=== PATIENT | male | born 1985 | race African-American/Black ===

== ENCOUNTER 2017-04-18 15:33 | Inpatient (IN) | payer MEDICARE ==
[~2017-04-18] VITALS: Ht 182.9 cm; Wt 195.5 kg
[~2017-04-18 15:33] MED LIST: AMOXICILLIN 25250 MG PO; ARAVA 20MG TABL20 MG PO; ATELVIA35 MG; BIAXIN 250MG T250 M1 PO; BUMEX 1MG TA1 MG/TA1 PO; BYSTOLIC10 MG PO; CARDIAC MED; CITRACAL PLUS1 TAB; COREG 6.256.25 MG/TA PO; FLOVENT 220MCG7.9 GM; FOLIC ACID 11 MG/TA1 PO; LEVAQUIN 750MG750 M1 PO; MORPHINE 1515 MG/TAB; MULTI VITAMINS1 TAB; NEPHROCAP PO; NORCO 325 MG-51 TAB PO; PHOS LO PO; PRAVACHOL 20MG20 MG PO; PREVACID 15MG15 M1 PO; PRINIVIL2.5 MG; PROTONIX 40MG T40 MG; RT ADVAIR HFA 2312 G IH; RT SPIRIVA18 MCG IH; TYLENOL 500MG500 MG PO; ULTRAM 50MG TAB50 MG; VANCOCIN HCL1 GM IV; VENTOLIN0.09 MG; VIRT PO; VIRT-CAPS; VITAMIN B-1000 MCG/T PO; VITAMIN C500 MG PO; VITAMIN D 1001000 IU; VITAMINC500CH PO; ZESTRIL 20MG TA20 MG PO; ZOFRAN ODT4 MG PO
[2017-04-18 16:19] LABS: BASO # 0.1 (0.0-0.2); BASO % 0.4 % (0.0-2.0); EOS # 0.3 (0.0-0.7); EOS % 2.5 % (0-4.0); GRAN # 9.1 (1.4-6.5); GRAN % 69.9 % (42.2-75.2); HEMATOCRIT 41.9 % (42.0-52.0); HEMOGLOBIN 13.8 g/dl (13.5-18.0); LYMPH # 2.2 (1.2-3.4); LYMPH % 17.2 % (20.0-51.0); MEAN CELL VOLUME 92 fl (80.0-100.0); MEAN CORPUSCULAR HEMOGLOBIN 30 pg (27.0-31.0); MEAN CORPUSCULAR HGB CONC 33 g/dl (33.0-37.0); MEAN PLATELET VOLUME 8.7 fl (7.4-10.4); MONO # 1.3 (0.1-0.6); MONO % 9.7 % (1.7-9.3); PLATELET COUNT 240 K/mm3 (130-400); RED BLOOD COUNT 4.57 M/mm3 (4.20-5.60); REDCELL DISTRIBUTION WIDTH-CV 14.7 % (11.5-14.5)
[2017-04-18 16:35] LABS: ADJUSTED CALCIUM 9.9 mg/dL (8.4-10.2); ALANINE AMINOTRANSFERASE 18 U/L (21-72); ALBUMIN 4.4 gm/dL (3.5-5.0); ALKALINE PHOSPHATASE 247 U/L (50-136); ANION GAP 18 mmol/L (7-16); BILIRUBIN,TOTAL 0.6 mg/dL (0.0-1.0); BLOOD UREA NITROGEN 82 mg/dL (9-20); CALCIUM 10.2 mg/dL (8.4-10.2); CARBON DIOXIDE 20 mmol/L (22-30); CHLORIDE 100 mmol/L (98-107); GLUCOSE 93 mg/dL (74-106); MAGNESIUM 2.6 mg/dL (1.6-2.3); PHOSPHOROUS 5.2 mg/dL (2.5-4.5); POTASSIUM 5.6 mmol/L (3.4-5.0); SODIUM 137 mmol/L (137-145)
[2017-04-18 16:43] LABS: CREATININE, serum 16.25 mg/dL (0.66-1.25)
[2017-04-18 16:46] LABS: B-TYPE NATRIURETIC PEPTIDE 197 pg/mL (0-125)
[2017-04-18 16:47] LABS: TROPONIN-I < 0.012 ng/mL (0.000-0.034)
[2017-04-18 22:13] VITALS: BP 128/85; PULSE 93; TEMP 98.3
[2017-04-19 04:10] VITALS: BP 132/81; PULSE 93; TEMP 98.6
[2017-04-19 11:20] VITALS: BP 127/68; PULSE 102; TEMP 98.1
== END 2017-04-19 12:33 | disposition home or self-care (01) | DRG 304 ==
LOC: COL.ER 15:33 → MEDICAL 17:06
PROVIDERS: Emergency Medicine
PROC: 5A1D60Z (ICD-10-PCS; principal; 2017-04-18)
DX: I16.0 Hypertensive urgency (principal); N18.6 End stage renal disease; I12.0 Hypertensive chronic kidney disease with stage 5 chronic kidney disease or end stage renal disease; E87.5 Hyperkalemia; E87.70 Fluid overload, unspecified; E83.39 Other disorders of phosphorus metabolism; Z87.891 Personal history of nicotine dependence; Z99.2 Dependence on renal dialysis
CPT/HCPCS: J1644

== ENCOUNTER 2017-05-13 07:08 | Emergency (ER) | payer MEDICARE ==
[~2017-05-13] VITALS: Ht 182.9 cm; Wt 189.5 kg
[2017-05-13 07:16] VITALS: TEMP 97.7
[2017-05-13 08:03] LABS: BASO % 0.3 % (0.0-2.0); EOS # 0.2 (0.0-0.7); EOS % 2.3 % (0-4.0); GRAN # 7.6 (1.4-6.5); GRAN % 72.9 % (42.2-75.2); HEMATOCRIT 43.3 % (42.0-52.0); HEMOGLOBIN 13.8 g/dl (13.5-18.0); LYMPH # 1.8 (1.2-3.4); LYMPH % 16.8 % (20.0-51.0); MEAN CELL VOLUME 93 fl (80.0-100.0); MEAN CORPUSCULAR HEMOGLOBIN 30 pg (27.0-31.0); MEAN CORPUSCULAR HGB CONC 32 g/dl (33.0-37.0); MEAN PLATELET VOLUME 8.7 fl (7.4-10.4); MONO # 0.8 (0.1-0.6); MONO % 7.3 % (1.7-9.3); PLATELET COUNT 200 K/mm3 (130-400); RED BLOOD COUNT 4.65 M/mm3 (4.20-5.60); REDCELL DISTRIBUTION WIDTH-CV 14.6 % (11.5-14.5); WHITE BLOOD COUNT 10.4 K/mm3 (4.8-10.8)
[2017-05-13 08:14] LABS: ADJUSTED CALCIUM 9.9 mg/dL (8.4-10.2); ALANINE AMINOTRANSFERASE 23 U/L (21-72); ALBUMIN 4.2 gm/dL (3.5-5.0); ALKALINE PHOSPHATASE 235 U/L (50-136); ANION GAP 16 mmol/L (7-16); BILIRUBIN,TOTAL 0.6 mg/dL (0.0-1.0); BLOOD UREA NITROGEN 42 mg/dL (9-20); CALCIUM 10.1 mg/dL (8.4-10.2); CARBON DIOXIDE 24 mmol/L (22-30); CHLORIDE 99 mmol/L (98-107); GLUCOSE 99 mg/dL (74-106); POTASSIUM 4.4 mmol/L (3.4-5.0); SODIUM 138 mmol/L (137-145); TOTAL PROTEIN 7.6 gm/dL (6.4-8.2)
[2017-05-13 08:18] LABS: CREATININE, serum 11.66 mg/dL (0.66-1.25)
[2017-05-13 08:25] LABS: B-TYPE NATRIURETIC PEPTIDE 332 pg/mL (0-125)
[2017-05-13 08:26] LABS: TROPONIN-I < 0.012 ng/mL (0.000-0.034)
[2017-05-13 10:50] VITALS: BP 102/84; PULSE 80
== END 2017-05-13 10:24 | disposition home or self-care (01) ==
LOC: COL.ER 07:08
PROVIDERS: Nurse Practitioner
DX: I13.2 Hypertensive heart and chronic kidney disease with heart failure and with stage 5 chronic kidney disease, or end stage renal disease (principal); N18.6 End stage renal disease; I50.9 Heart failure, unspecified; E87.70 Fluid overload, unspecified; E66.9 Obesity, unspecified; Z68.43 Body mass index [BMI] 50.0-59.9, adult; Z99.2 Dependence on renal dialysis; Z87.891 Personal history of nicotine dependence; Z90.49 Acquired absence of other specified parts of digestive tract

== ENCOUNTER 2017-06-23 10:06 | Inpatient (IN) | payer MEDICARE ==
[~2017-06-23] VITALS: Ht 182.9 cm; Wt 193.0 kg
[2017-06-23 12:40] LABS: BASO % 0.4 % (0.0-2.0); EOS # 0.3 (0.0-0.7); EOS % 2.4 % (0-4.0); GRAN # 7.2 (1.4-6.5); GRAN % 68.2 % (42.2-75.2); HEMATOCRIT 46.2 % (42.0-52.0); HEMOGLOBIN 14.9 g/dl (13.5-18.0); LYMPH # 2.3 (1.2-3.4); LYMPH % 22.2 % (20.0-51.0); MEAN CELL VOLUME 93 fl (80.0-100.0); MEAN CORPUSCULAR HEMOGLOBIN 30 pg (27.0-31.0); MEAN CORPUSCULAR HGB CONC 32 g/dl (33.0-37.0); MEAN PLATELET VOLUME 8.9 fl (7.4-10.4); MONO # 0.7 (0.1-0.6); MONO % 6.4 % (1.7-9.3); PLATELET COUNT 220 K/mm3 (130-400); RED BLOOD COUNT 4.97 M/mm3 (4.20-5.60); REDCELL DISTRIBUTION WIDTH-CV 14.8 % (11.5-14.5); WHITE BLOOD COUNT 10.5 K/mm3 (4.8-10.8)
[2017-06-23 12:48] LABS: PROTHROMBIN TIME 10.7 SECONDS (9.7-12.8)
[2017-06-23 12:49] LABS: ADJUSTED CALCIUM 9.7 mg/dL (8.4-10.2); ALANINE AMINOTRANSFERASE 19 U/L (21-72); ALBUMIN 4.5 gm/dL (3.5-5.0); ALKALINE PHOSPHATASE 270 U/L (50-136); ANION GAP 18 mmol/L (7-16); BILIRUBIN,TOTAL 0.7 mg/dL (0.0-1.0); BLOOD UREA NITROGEN 82 mg/dL (9-20); CALCIUM 10.1 mg/dL (8.4-10.2); CARBON DIOXIDE 20 mmol/L (22-30); CHLORIDE 101 mmol/L (98-107); CREATINE KINASE 163 U/L (55-170); GLUCOSE 77 mg/dL (74-106); LIPASE 343 U/L (23-300); MAGNESIUM 2.5 mg/dL (1.6-2.3); SODIUM 139 mmol/L (137-145); TOTAL PROTEIN 7.9 gm/dL (6.4-8.2)
[2017-06-23 12:58] LABS: CREATININE, serum 20.51 mg/dL (0.66-1.25); POTASSIUM 6.9 mmol/L (3.4-5.0)
[2017-06-23 13:01] LABS: B-TYPE NATRIURETIC PEPTIDE 784 pg/mL (0-125)
[2017-06-23 13:04] LABS: TROPONIN-I < 0.012 ng/mL (0.000-0.034)
[2017-06-23 18:42] VITALS: BP 138/77; PULSE 72; TEMP 97.6
[2017-06-23 19:37] VITALS: BP 129/71; PULSE 74; TEMP 97.5
[2017-06-24] VITALS: BP 137/79; PULSE 87; TEMP 98.2
[2017-06-24 02:26] VITALS: BP 134/76; PULSE 96; TEMP 97.9
[2017-06-24 03:39] VITALS: BP 130/74; PULSE 87; TEMP 98
[2017-06-24 07:16] VITALS: BP 134/81; PULSE 73; TEMP 98
[2017-06-24 08:46] LABS: BASO % 0.3 % (0.0-2.0); EOS # 0.2 (0.0-0.7); EOS % 2.2 % (0-4.0); GRAN # 6.2 (1.4-6.5); HEMATOCRIT 41.3 % (42.0-52.0); HEMOGLOBIN 13.2 g/dl (13.5-18.0); LYMPH % 22.3 % (20.0-51.0); MEAN CELL VOLUME 93 fl (80.0-100.0); MEAN CORPUSCULAR HEMOGLOBIN 30 pg (27.0-31.0); MEAN CORPUSCULAR HGB CONC 32 g/dl (33.0-37.0); MEAN PLATELET VOLUME 9.2 fl (7.4-10.4); MONO # 0.6 (0.1-0.6); MONO % 6.9 % (1.7-9.3); PLATELET COUNT 175 K/mm3 (130-400); RED BLOOD COUNT 4.43 M/mm3 (4.20-5.60); WHITE BLOOD COUNT 9.1 K/mm3 (4.8-10.8)
[2017-06-24 08:52] LABS: ANION GAP 16 mmol/L (7-16); BLOOD UREA NITROGEN 66 mg/dL (9-20); CALCIUM 9.6 mg/dL (8.4-10.2); CARBON DIOXIDE 22 mmol/L (22-30); CHLORIDE 103 mmol/L (98-107); GLUCOSE 104 mg/dL (74-106); POTASSIUM 4.9 mmol/L (3.4-5.0); SODIUM 141 mmol/L (137-145)
[2017-06-24 09:03] LABS: CREATININE, serum 16.68 mg/dL (0.66-1.25)
[2017-06-24 09:04] LABS: TROPONIN-I < 0.012 ng/mL (0.000-0.034)
[2017-06-24 10:24] VITALS: BP 153/91; PULSE 72; TEMP 98
[2017-06-24 11:08] VITALS: BP 158/100; PULSE 74; TEMP 97.3
== END 2017-06-24 11:54 | disposition home or self-care (01) | DRG 640 ==
LOC: COL.ER 10:06 → MEDICAL 13:54
PROVIDERS: Emergency Medicine; Internal Medicine
PROC: 5A1D00Z (ICD-10-PCS; principal; 2017-06-23)
DX: E87.5 Hyperkalemia (principal); N18.6 End stage renal disease; I12.0 Hypertensive chronic kidney disease with stage 5 chronic kidney disease or end stage renal disease; I16.0 Hypertensive urgency; E87.70 Fluid overload, unspecified; R07.89 Other chest pain; E83.39 Other disorders of phosphorus metabolism; E66.9 Obesity, unspecified; Z99.2 Dependence on renal dialysis; Z87.891 Personal history of nicotine dependence
CPT/HCPCS: J1815; J2405

== ENCOUNTER 2017-11-18 23:04 | Inpatient (IN) | payer MEDICARE, BC ==
[~2017-11-18] VITALS: Ht 182.9 cm; Wt 168.0 kg
[2017-11-18 23:51] LABS: BASO # 0.1 (0.0-0.2); BASO % 0.5 % (0.0-2.0); EOS # 0.2 (0.0-0.7); GRAN # 7.9 (1.4-6.5); GRAN % 75.5 % (42.2-75.2); HEMATOCRIT 32.1 % (42.0-52.0); HEMOGLOBIN 10.4 g/dl (13.5-18.0); LYMPH # 1.5 (1.2-3.4); LYMPH % 14.6 % (20.0-51.0); MEAN CELL VOLUME 90 fl (80.0-100.0); MEAN CORPUSCULAR HEMOGLOBIN 29 pg (27.0-31.0); MEAN CORPUSCULAR HGB CONC 32 g/dl (33.0-37.0); MEAN PLATELET VOLUME 9.3 fl (7.4-10.4); MONO # 0.7 (0.1-0.6); PLATELET COUNT 191 K/mm3 (130-400); RED BLOOD COUNT 3.56 M/mm3 (4.20-5.60); REDCELL DISTRIBUTION WIDTH-CV 13.2 % (11.5-14.5)
[2017-11-18 23:55] LABS: INR 1.1 (0.8-3.0); PROTHROMBIN TIME 12.6 SECONDS (9.7-12.8)
[2017-11-19] VITALS (7 sets, daily range): BP systolic 144–188; BP diastolic 79–124; PULSE 79–101; TEMP 97.9–98.8
[2017-11-19 00:01] LABS: ALBUMIN 4.4 gm/dL (3.5-5.0); BILIRUBIN,TOTAL 0.6 mg/dL (0.0-1.0); POTASSIUM 4.4 mmol/L (3.4-5.0); TOTAL PROTEIN 7.3 gm/dL (6.4-8.2)
[2017-11-19 00:07] LABS: CREATININE, serum 18.88 mg/dL (0.66-1.25)
[2017-11-19 00:13] LABS: TROPONIN-I 0.058 ng/mL (0.000-0.034)
[2017-11-20] VITALS (10 sets, daily range): BP systolic 141–203; BP diastolic 82–113; PULSE 88–113; TEMP 97.5–98.8
[2017-11-20 07:55] LABS: ALBUMIN 4.2 gm/dL (3.5-5.0); CALCIUM 9.4 mg/dL (8.4-10.2); PHOSPHOROUS 5.8 mg/dL (2.5-4.5); POTASSIUM 4.3 mmol/L (3.4-5.0)
[2017-11-20 08:03] LABS: CREATININE, serum 15.54 mg/dL (0.66-1.25)
[2017-11-21 01:04] VITALS: BP 165/108; PULSE 103; TEMP 98.6
[2017-11-21 05:52] VITALS: BP 187/130; PULSE 89; TEMP 98.3
[2017-11-21 07:42] VITALS: BP 182/126; PULSE 105; TEMP 98.1
[2017-11-21] MEDS ORDERED: NORVASC 5MG5 MG/TAB PO (11:11)
[2017-11-21] MEDS ORDERED: AMOXICILLIN 8751 TAB PO (11:11)
[2017-11-21] MEDS ORDERED: ROCALTROL0.5 MCG PO (11:12)
== END 2017-11-21 12:37 | disposition home or self-care (01) | DRG 280 ==
LOC: COL.ER 23:04 → MEDICAL 11-19 00:26
PROVIDERS: Emergency Medicine; Internal Medicine Nephrology
DX: I13.2 Hypertensive heart and chronic kidney disease with heart failure and with stage 5 chronic kidney disease, or end stage renal disease (principal); I50.23 Acute on chronic systolic (congestive) heart failure; I21.A1 Myocardial infarction type 2; N18.6 End stage renal disease; I16.0 Hypertensive urgency; J01.00 Acute maxillary sinusitis, unspecified; Z99.2 Dependence on renal dialysis; Z87.891 Personal history of nicotine dependence; Z91.15 Patient's noncompliance with renal dialysis
CPT/HCPCS: A9502; J0604; J1940; J2270; J2405; J2765; J2785

== ENCOUNTER → 2020-01-26 | Outpatient (CLI) | payer MEDICARE, BC ==
[~2020-01-26] MED LIST changes: +AMOXICILLIN 8751 TAB PO; +COLACE 100100 MG/CAP PO; +DILAUDID 2MG TAB2 MG PO; +DULCOLAX TAB5 MG PO; +NORVASC 5MG5 MG/TAB PO; +ROCALTROL0.5 MCG PO
== END ==
LOC: ZCOL.LAB 10:19
DX: Z03.818 Encounter for observation for suspected exposure to other biological agents ruled out (principal)

== ENCOUNTER 2020-05-27 15:03 | Inpatient (IN) | payer MEDICARE, BC ==
[2020-05-27] VITALS (223 sets, daily range): BP systolic 145–159; BP diastolic 102–105; PULSE 103–109; TEMP 99–99.3; O2SAT 88–100
[~2020-05-27] VITALS: Ht 182.9 cm; Wt 129.4 kg
[2020-05-27 16:12] LABS: GRAN # 2.5 (1.4-6.5); GRAN % 70.5 % (42.2-75.2); HEMATOCRIT 39.6 % (42.0-52.0); HEMOGLOBIN 12.8 g/dl (13.5-18.0); LYMPH # 0.7 (1.2-3.4); LYMPH % 20.6 % (20.0-51.0); MEAN CELL VOLUME 91 fl (80.0-100.0); MEAN CORPUSCULAR HEMOGLOBIN 29 pg (27.0-31.0); MEAN CORPUSCULAR HGB CONC 32 g/dl (33.0-37.0); MEAN PLATELET VOLUME 10.1 fl (7.4-10.4); MONO # 0.3 (0.1-0.6); MONO % 8.6 % (1.7-9.3); PLATELET COUNT 97 K/mm3 (130-400); RED BLOOD COUNT 4.36 M/mm3 (4.20-5.60); REDCELL DISTRIBUTION WIDTH-CV 13.6 % (11.5-14.5)
[2020-05-27 16:21] LABS: ALBUMIN 3.8 gm/dL (3.5-5.0); BILIRUBIN,TOTAL 0.9 mg/dL (0.0-1.0); CALCIUM 9.2 mg/dL (8.4-10.2); CREATININE, serum 10.96 (0.66-1.25); POTASSIUM 3.4 mmol/L (3.4-5.0)
--- NOTE | 2020-05-27 19:30 | NUR ---
Patient resting in bed at this time talking on the phone. Assessment complete. See shift assessment for details. patient does get dyspneic with exertion, but is otherwise fine when resting. No complaints of pain. He is A+Ox4. Veyr pleasant man. No current needs at this time. Will continue to monitor. Call light within reach.
--- NOTE | 2020-05-27 20:45 | NUR ---
Dr. Aquino at the bedside at this time.
[2020-05-28] VITALS (954 sets, daily range): BP systolic 158–174; BP diastolic 73–127; PULSE 95–110; TEMP 98.2–100.4; O2SAT 35–100
[2020-05-28 13:15] LABS: BASO % 0.3 % (0.0-2.0); GRAN # 2.4 (1.4-6.5); GRAN % 79.5 % (42.2-75.2); HEMATOCRIT 37.7 % (42.0-52.0); LYMPH # 0.4 (1.2-3.4); LYMPH % 14.6 % (20.0-51.0); MEAN CELL VOLUME 92 fl (80.0-100.0); MEAN CORPUSCULAR HEMOGLOBIN 29 pg (27.0-31.0); MEAN CORPUSCULAR HGB CONC 32 g/dl (33.0-37.0); MEAN PLATELET VOLUME 11.5 fl (7.4-10.4); MONO # 0.2 (0.1-0.6); MONO % 5.3 % (1.7-9.3); PLATELET COUNT 97 K/mm3 (130-400); REDCELL DISTRIBUTION WIDTH-CV 13.8 % (11.5-14.5)
[2020-05-28 13:30] LABS: ALBUMIN 3.7 gm/dL (3.5-5.0); BILIRUBIN,TOTAL 0.8 mg/dL (0.0-1.0); CALCIUM 8.9 mg/dL (8.4-10.2); CREATININE, serum 12.4 (0.66-1.25); POTASSIUM 3.7 mmol/L (3.4-5.0); TOTAL PROTEIN 6.9 gm/dL (6.4-8.2)
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
--- NOTE | 2020-05-28 20:10 | NUR ---
PATIENT CHEERFUL COOPERATIVE, EXPLAINS ILLNESS, DIRECT EYE CONTACT, WARM SKIN, ORAL TEMP 98.5 AXILLARY TEMP 99.5, COMPLAINS OF TIGHTNESS IN CHEST WHEN COUGHING, RATES 4 /10. ADMINISTERING MED FOR PAIN AND WARM SKIN.
[2020-05-29] VITALS (781 sets, daily range): BP systolic 155–174; BP diastolic 109–119; PULSE 98–108; TEMP 98.1–98.8; O2SAT 39–100
[2020-05-29 05:32] LABS: HEMATOCRIT 38.6 % (42.0-52.0); HEMOGLOBIN 12.5 g/dl (13.5-18.0); MEAN CELL VOLUME 90 fl (80.0-100.0); MEAN CORPUSCULAR HEMOGLOBIN 29 pg (27.0-31.0); MEAN CORPUSCULAR HGB CONC 32 g/dl (33.0-37.0); PLATELET COUNT 122 K/mm3 (130-400); RED BLOOD COUNT 4.31 M/mm3 (4.20-5.60)
[2020-05-29 05:41] LABS: ALBUMIN 3.7 gm/dL (3.5-5.0); BILIRUBIN,TOTAL 0.7 mg/dL (0.0-1.0); CALCIUM 7.8 mg/dL (8.4-10.2); POTASSIUM 3.9 mmol/L (3.4-5.0); TOTAL PROTEIN 7.1 gm/dL (6.4-8.2)
[2020-05-29 05:46] LABS: CREATININE, serum 15.99 (0.66-1.25)
[2020-05-29 06:03] LABS: BAND 38 % (0-10); LYMPHOCYTE 7 % (20.0-51.0); METAMYELOCYTE 1 % (0-0); NEUTROPHILS 50 % (42.0-75.2); PLATELET ESTIMATE DECREASED (NORMAL)
--- NOTE | 2020-05-29 16:31 | NUR ---
Fingerprint Clerk contacted the patient on his cell phone to discuss setting up at PCP. The patient was agreeable at this time to look at a list of [facility] physicians. He states he has dialysis three days a week and he could attend appointments on those days since he will be in town. SW provided list of providers. Will continue to monitor.
--- NOTE | 2020-05-29 19:57 | NUR ---
PATIENT STATES DENIAL OF DISCOMFORT. WITH DIAYLSIS TODAY HE FEELS HE CAN BREATH BETTER, LESS OF A COUGH, CHEST TIGHTNESS NOW A 3/10 AND TOLERABLE
[2020-05-30] VITALS (743 sets, daily range): BP systolic 150–170; BP diastolic 100–113; PULSE 98–104; TEMP 97.8–99.1; O2SAT 46–100
[2020-05-30 05:50] LABS: HEMOGLOBIN 14.1 g/dl (13.5-18.0); MEAN CELL VOLUME 89 fl (80.0-100.0); MEAN CORPUSCULAR HEMOGLOBIN 29 pg (27.0-31.0); MEAN CORPUSCULAR HGB CONC 33 g/dl (33.0-37.0); MEAN PLATELET VOLUME 10.4 fl (7.4-10.4); PLATELET COUNT 186 K/mm3 (130-400); RED BLOOD COUNT 4.83 M/mm3 (4.20-5.60); REDCELL DISTRIBUTION WIDTH-CV 14.2 % (11.5-14.5)
[2020-05-30 05:57] LABS: ALBUMIN 4.1 gm/dL (3.5-5.0); BILIRUBIN,TOTAL 0.8 mg/dL (0.0-1.0); CALCIUM 7.7 mg/dL (8.4-10.2); CREATININE, serum 13.17 (0.66-1.25); POTASSIUM 3.9 mmol/L (3.4-5.0); TOTAL PROTEIN 7.7 gm/dL (6.4-8.2)
[2020-05-30 07:21] LABS: BAND 5 % (0-10); LYMPHOCYTE 14 % (20.0-51.0); METAMYELOCYTE 2 % (0-0); NEUTROPHILS 73 % (42.0-75.2); PLATELET ESTIMATE NORMAL (NORMAL)
--- NOTE | 2020-05-30 20:33 | NUR ---
Resting in bed. Assessment complete. Right lower lobe diminshed otherwise clear. Heart sounds tachy. Bowels active. Pulses present throughout. bilateral lower extremity edema +1. INT right AC flushed without complications. Left forearm fistula bruit and thrill present. Denies pain. BP elevated-scheduled hydralazine given. Denies needs at this time. Will monitor. Call light in reach.
--- NOTE | 2020-05-30 21:47 | NUR ---
BP continues to be elevated. Given PRN hydralazine at this time orally. Will recheck closer to midnight.
--- NOTE | 2020-05-30 21:48 | NUR ---
Per Juanita at dialysis, patient will be done at 0730
[2020-05-31] VITALS (659 sets, daily range): BP systolic 115–151; BP diastolic 88–109; PULSE 101–120; TEMP 97.8–98.6; O2SAT 74–100
--- NOTE | 2020-05-31 00:18 | NUR ---
Resting in bed. Denies needs. Denies pain .Call light in reach.
--- NOTE | 2020-05-31 06:48 | NUR ---
Patient placed on 2 liter for comfort/shortness of breath after using restroom by TATUM Doyle. Saturations low 90s. Now 97%. Respiratory notified. Otherwise uneventful night. Resting in bed this AM. Was giving hydralazine PRN as ordered for BP. Denied needs. Call light in reach.
--- NOTE | 2020-05-31 07:29 | NUR ---
Report given to TATUM Villanueva
[2020-05-31 09:35] LABS: HEMATOCRIT 39.8 % (42.0-52.0); HEMOGLOBIN 13.1 g/dl (13.5-18.0); MEAN CELL VOLUME 90 fl (80.0-100.0); MEAN CORPUSCULAR HEMOGLOBIN 30 pg (27.0-31.0); MEAN CORPUSCULAR HGB CONC 33 g/dl (33.0-37.0); MEAN PLATELET VOLUME 10.6 fl (7.4-10.4); PLATELET COUNT 178 K/mm3 (130-400); RED BLOOD COUNT 4.44 M/mm3 (4.20-5.60); REDCELL DISTRIBUTION WIDTH-CV 14.3 % (11.5-14.5)
[2020-05-31 09:53] LABS: ALBUMIN 3.7 gm/dL (3.5-5.0); BILIRUBIN,TOTAL 0.7 mg/dL (0.0-1.0); CALCIUM 8.3 mg/dL (8.4-10.2); POTASSIUM 3.7 mmol/L (3.4-5.0); TOTAL PROTEIN 6.8 gm/dL (6.4-8.2)
[2020-05-31 09:57] LABS: BAND 3 % (0-10); LYMPHOCYTE 26 % (20.0-51.0); NEUTROPHILS 68 % (42.0-75.2); PLATELET ESTIMATE NORMAL (NORMAL)
[2020-05-31 09:59] LABS: CREATININE, serum 16.77 (0.66-1.25)
--- NOTE | 2020-05-31 13:55 | NUR ---
It Risk And Assurance Senior Manager contacted the patient via room phone to disuss PCP options. The patient is still looking over the list provided. JESSICA offered to set up a physician for the patient. He declined and would like JESSICA to follow up with him tomorrow, 06/01 for his choice.
--- NOTE | 2020-05-31 20:46 | NUR ---
PATIENT DENIES DISCOMFORT AT THIS TIME, STATES "i'M READY TO GO HOME, HOPEFULLY SOON". B/P IS LOWER AT CURRENT TIME 124/88
[2020-06-01] VITALS (569 sets, daily range): BP systolic 96–134; BP diastolic 79–88; PULSE 101–109; TEMP 97.8–99.3; O2SAT 88–100
[2020-06-01 05:53] LABS: HEMATOCRIT 44.7 % (42.0-52.0); HEMOGLOBIN 14.3 g/dl (13.5-18.0); MEAN CELL VOLUME 90 fl (80.0-100.0); MEAN CORPUSCULAR HEMOGLOBIN 29 pg (27.0-31.0); MEAN CORPUSCULAR HGB CONC 32 g/dl (33.0-37.0); MEAN PLATELET VOLUME 10.6 fl (7.4-10.4); PLATELET COUNT 217 K/mm3 (130-400); RED BLOOD COUNT 4.99 M/mm3 (4.20-5.60); REDCELL DISTRIBUTION WIDTH-CV 14.2 % (11.5-14.5)
[2020-06-01 05:58] LABS: BILIRUBIN,TOTAL 0.7 mg/dL (0.0-1.0); CALCIUM 8.6 mg/dL (8.4-10.2); CREATININE, serum 13.4 (0.66-1.25); POTASSIUM 3.9 mmol/L (3.4-5.0); TOTAL PROTEIN 7.5 gm/dL (6.4-8.2)
[2020-06-01 06:10] LABS: BAND 2 % (0-10); LYMPHOCYTE 19 % (20.0-51.0); NEUTROPHILS 67 % (42.0-75.2); NUCLEATED RED BLOOD CELL 2 (0-6); PLATELET ESTIMATE NORMAL (NORMAL)
--- NOTE | 2020-06-01 15:15 | NUR ---
trailhead construction worker met with patient to follow up on choice of primary care provider. Patient chose [facility] in [place].
--- NOTE | 2020-06-01 18:22 | NUR ---
Patient arrived to room at this time. He is stable. Ambulated to the restroom from the wheel chair and did well via standby. All belongings were transferred with the patient. No current complaints or needs at this time. Patient is now comfortable in room. Call light is in reach. Patient denies other needs besides the want to take a shower. Patient is aware to not get up on his own.
--- NOTE | 2020-06-01 23:18 | NUR ---
Pt resting in bed, ASSOCIATE PROFESSOR OF COMMUNICATION assisted with shower and provided clean gown. pt reports productive cough and shortness of breath. heart sounds are regular with S1 and S2 present. no other needs at this time.
[2020-06-02 00:19] VITALS: BP 130/82; PULSE 92; TEMP 98.2
[2020-06-02 04:22] VITALS: BP 118/76; PULSE 103; TEMP 98
--- NOTE | 2020-06-02 05:22 | NUR ---
Patient has denied having pain and discomfort this shift. Voices no questions, needs, or concerns. Has been resting in bed with call light within reach.
[2020-06-02 06:22] LABS: ALBUMIN 4.1 gm/dL (3.5-5.0); BILIRUBIN,TOTAL 0.8 mg/dL (0.0-1.0); CALCIUM 8.9 mg/dL (8.4-10.2); POTASSIUM 3.8 mmol/L (3.4-5.0); TOTAL PROTEIN 7.2 gm/dL (6.4-8.2)
[2020-06-02 07:52] LABS: HEMATOCRIT 45.4 % (42.0-52.0); HEMOGLOBIN 14.9 g/dl (13.5-18.0); MEAN CELL VOLUME 88 fl (80.0-100.0); MEAN CORPUSCULAR HEMOGLOBIN 29 pg (27.0-31.0); MEAN CORPUSCULAR HGB CONC 33 g/dl (33.0-37.0); MEAN PLATELET VOLUME 10.7 fl (7.4-10.4); PLATELET COUNT 283 K/mm3 (130-400); RED BLOOD COUNT 5.17 M/mm3 (4.20-5.60); REDCELL DISTRIBUTION WIDTH-CV 13.9 % (11.5-14.5)
[2020-06-02 08:36] LABS: BAND 1 % (0-10); LYMPHOCYTE 25 % (20.0-51.0); NEUTROPHILS 64 % (42.0-75.2); PLATELET ESTIMATE NORMAL (NORMAL)
[2020-06-02 08:58] VITALS: BP 120/61; PULSE 111; TEMP 97.8
--- NOTE | 2020-06-02 10:35 | NUR ---
Assessment complete. Patient sitting up in bed, awake and alert at this time. Denies pain or discomfort. IV site is CD&I, flushed well. Fistula site, dressed, CD&I, no signs of bleeding or drainage. Only complaint was that his breakfast was cold. Will continue to monitor. Patient is aware that he needs to call before getting up. No other needs at thsi time. Call light is in reach.
[2020-06-02 13:05] VITALS: BP 135/85; PULSE 108; TEMP 98.1
--- NOTE | 2020-06-02 13:16 | NUR ---
Patient was up, ambulated to restroom at this time using walker via standby assist. Patient did very well. He felt SOB and a little dizzy when sittinjg up but this improved. Denies pain or discomfort at this time. Will continue to monitor. Call light is in reach.
--- NOTE | 2020-06-02 16:21 | NUR ---
JESSICA was notified from Jennifer LOPEZ, that [facility] in [place] is not taking a new patient's at this time. Antonette referred JESSICA to Dr. Chaparro Ortiz at [facility]. JESSICA then contacted [facility] and secured the patient a telephone appointment on , 06/08, at [address] Ortiz. JESSICA faxed the patient's records to [facility] (fax#[phone]). [place] requested the patient's d/c summary and orders when in. JESSICA notified the self contained behavior unit teacher of the appointment. JESSICA contacted and updated the patient and his mother of the appointment. They were agreeable to the appointment. No additional needs at this time.
--- NOTE | 2020-06-02 17:40 | NUR ---
Patient has had no complaints and minimal needs through shift. Continues to deny pain. Some SOB on exersion but O2 sat remains stable. Continuing to monitor. Call light is in reach.
[2020-06-02 17:47] VITALS: BP 127/63; PULSE 102; TEMP 97.7
[2020-06-02 20:00] VITALS: BP 130/84; PULSE 107; TEMP 97.9
--- NOTE | 2020-06-03 02:57 | NUR ---
Pt assessment completed. Pt has had no complaints this shift. Plan for patient to discharge next shift.
[2020-06-03 05:51] VITALS: BP 107/77; PULSE 104; TEMP 97.5
[2020-06-03 10:15] VITALS: BP 110/72; PULSE 99; TEMP 97.4
--- NOTE | 2020-06-03 10:19 | NUR ---
PATIENT ASSESSMENT COMPLETED. HE DENIES ANY PAIN OR SOB WHILE AT REST. HE DOES REPORTS SOME WITH ACTIVITY. ALSO STATES THAT COUGH IS ALOT BETTER NOW
[2020-06-03 12:54] VITALS: BP 110/70; PULSE 103; TEMP 98
--- NOTE | 2020-06-03 13:02 | NUR ---
PATIENT IS RESTING IN BED. I WAS ABLE TO DRAW BLOOD FROM THE RIGHT HAND WITH A 23 G BUTTERFLY NEEDLE. PATIENT TOLERATES WELL. REQUESTED WATER THIS WAS PROVIDED ALSO.
[2020-06-03 13:20] LABS: HEMATOCRIT 42.8 % (42.0-52.0); MEAN CELL VOLUME 89 fl (80.0-100.0); MEAN CORPUSCULAR HEMOGLOBIN 29 pg (27.0-31.0); MEAN CORPUSCULAR HGB CONC 33 g/dl (33.0-37.0); MEAN PLATELET VOLUME 10.3 fl (7.4-10.4); PLATELET COUNT 280 K/mm3 (130-400); REDCELL DISTRIBUTION WIDTH-CV 14.1 % (11.5-14.5)
[2020-06-03 13:29] LABS: ALBUMIN 3.9 gm/dL (3.5-5.0); BILIRUBIN,TOTAL 0.7 mg/dL (0.0-1.0); CALCIUM 8.3 mg/dL (8.4-10.2); POTASSIUM 3.5 mmol/L (3.4-5.0); TOTAL PROTEIN 7.2 gm/dL (6.4-8.2)
[2020-06-03 13:34] LABS: CREATININE, serum 14.19 (0.66-1.25)
[2020-06-03] MEDS ORDERED: PROTONIX 40MG T40 MG PO (13:56)
[2020-06-03] MEDS ORDERED: DECADRON6 MG PO (13:57)
[2020-06-03 15:18] LABS: LYMPHOCYTE 21 % (20.0-51.0); NEUTROPHILS 68 % (42.0-75.2)
[2020-06-03 15:21] LABS: HYPOCHROMIA 1+; PLATELET ESTIMATE NORMAL (NORMAL)
--- NOTE | 2020-06-03 16:45 | NUR ---
PATIENT DISCHARGED TO HOME VIA WHEELCHAIR WITH BELONGINGS. COVID PROTOCOL FOLLOWED FOR DISCHARGE. NO FURTHER QUESTIONS OR NEEDS EXPRESSED.
== END 2020-06-03 16:45 | disposition home or self-care (01) | DRG 177 ==
LOC: COL.ER 15:03 → ICU 16:21 → PEDS 06-01 18:09
PROVIDERS: Family Medicine; ADMIT Internal Medicine Nephrology
PROC: 5A1D70Z Performance of Urinary Filtration, Intermittent, Less than 6 Hours Per Day (ICD-10-PCS; principal; 2020-06-03)
DX: U07.1 COVID-19 (principal); J12.89 Other viral pneumonia; N18.6 End stage renal disease; Z68.42 Body mass index [BMI] 45.0-49.9, adult; I42.9 Cardiomyopathy, unspecified; I13.2 Hypertensive heart and chronic kidney disease with heart failure and with stage 5 chronic kidney disease, or end stage renal disease; D69.6 Thrombocytopenia, unspecified; E83.39 Other disorders of phosphorus metabolism; E66.01 Morbid (severe) obesity due to excess calories; I50.9 Heart failure, unspecified; Z90.89 Acquired absence of other organs; Z87.891 Personal history of nicotine dependence
CPT/HCPCS: J0692; J1650; J1956; J7030; J7120; J8540

== ENCOUNTER 2020-07-12 06:35 | Observation (INO) | payer MEDICARE, BC ==
[~2020-07-12] VITALS: Ht 182.9 cm; Wt 163.4 kg
[~2020-07-12 06:35] MED LIST changes: +DECADRON6 MG PO; +PROTONIX 40MG T40 MG PO
[2020-07-12 07:36] LABS: BASO % 0.4 % (0.0-2.0); EOS # 0.1 (0.0-0.7); EOS % 0.7 % (0-4.0); GRAN # 5.3 (1.4-6.5); GRAN % 69.6 % (42.2-75.2); HEMOGLOBIN 10.5 g/dl (13.5-18.0); LYMPH # 1.6 (1.2-3.4); LYMPH % 21.1 % (20.0-51.0); MEAN CELL VOLUME 91 fl (80.0-100.0); MEAN CORPUSCULAR HEMOGLOBIN 29 pg (27.0-31.0); MEAN CORPUSCULAR HGB CONC 32 g/dl (33.0-37.0); MEAN PLATELET VOLUME 9.5 fl (7.4-10.4); MONO # 0.6 (0.1-0.6); MONO % 7.5 % (1.7-9.3); PLATELET COUNT 201 K/mm3 (130-400); RED BLOOD COUNT 3.61 M/mm3 (4.20-5.60); REDCELL DISTRIBUTION WIDTH-CV 14.6 % (11.5-14.5)
[2020-07-12 07:50] LABS: ALBUMIN 3.9 gm/dL (3.5-5.0); BILIRUBIN,TOTAL 0.7 mg/dL (0.0-1.0); C-REACTIVE PROTEIN 1.2 mg/dL (0.0-0.9); CALCIUM 8.8 mg/dL (8.4-10.2); CREATININE, serum 9.78 (0.66-1.25); POTASSIUM 3.7 mmol/L (3.4-5.0); TOTAL PROTEIN 6.7 gm/dL (6.4-8.2)
[2020-07-12 08:05] LABS: TROPONIN-I 0.038 ng/mL (0.000-0.035)
--- NOTE | 2020-07-12 08:45 | NUR ---
Realtime Court Reporter was consulted for this patient due to needing information about affording medications. The patient has Medicare and [employer] as secondary. SW met with the patient. SW provided GoodRx Card for the patient. SW discussed applying for Medicaid. He has applied in the past but was denied. He would like to apply again. The patient was open to having Antionette Sifuentesruh with the [facility] finance assist. JESSICA consulted with Antionette. JESSICA collaborated the above information with the patient's nurse.
--- NOTE | 2020-07-12 15:13 | NUR ---
Glass Deposition Tender and RN Alysha EID met with the patient to present the [employer] forms. The patient understood and signed the form. A copy was provided to the patient and original was placed in the chart.
[2020-07-12 16:16] VITALS: BP 196/122; PULSE 89; TEMP 97.7
--- NOTE | 2020-07-12 19:41 | NUR ---
Pt up to room 315 after dialysis this afternoon. pt A&O, indpendent in room, on room air, breathing is even and unlabored. Pt denies SOA. Pt on tele, pulses strong bilaterally, HRRR. BS active. pt denies N/V/D since arriving to dialysis and floor. BLE 1+ noted. No skin issues noted. Lt arm restriction, LFA fistula in place, bruit and thrill present. RAC INT IV flushes w/o difficulty. Pt has had elevated BPs all day, states he feels fine. Hydralazine PRN administered and atenolol per mar. pt denies chest pain, dizziness, numbness or tingling. No further needs expressed.
[2020-07-12 19:57] VITALS: BP 108/108; BP 187/108; PULSE 82; TEMP 97.6
--- NOTE | 2020-07-12 20:00 | NUR ---
Resting in bed. Assessment complete. Lungs diminshed throughout. Heart sounds normal. Bowels active x4. Pulses present throughout. Bilateral lower extremity edema +1. Denies pain. Denies needs at this time. Call light in reach. BP medications given.
[2020-07-12 21:39] VITALS: BP 171/105
--- NOTE | 2020-07-12 22:09 | NUR ---
Patient given PRN hydralazine for BP
[2020-07-12 23:55] VITALS: BP 155/93; PULSE 80; TEMP 98.5
--- NOTE | 2020-07-13 00:02 | NUR ---
Resting in bed. Denies needs. Call light in reach.
--- NOTE | 2020-07-13 02:11 | NUR ---
Resting in bed asleep. Call light in reach.
[2020-07-13 03:58] VITALS: BP 153/96; PULSE 79; TEMP 98.5
--- NOTE | 2020-07-13 06:40 | NUR ---
Patient required zofran x2 doses throughout night for nausea. Otherwise uneventful night. Resting in bed this AM. Call light in reach.
--- NOTE | 2020-07-13 07:15 | NUR ---
Report given to TATUM Pack
[2020-07-13 08:03] VITALS: BP 169/99; PULSE 81; TEMP 98.7
--- NOTE | 2020-07-13 08:57 | NUR ---
Pt awake and alert this morning upon entry, talkative, no C/O pain at this time, shift assessments complete, no issues, left Pt call light in reach, bed in lowest position.
--- NOTE | 2020-07-13 11:09 | NUR ---
SW met with the patient to discuss discharge plan. The patient lives in [place] with his parents: Ngozi (ph#[phone]) and Vipin. He reports independence with ADLs and has a cane. The patient does not have a PCP at this time. SW discussed getting set up with a PCP or at a clinic. The patient states that he was set up with Dr. Gary in [place] his last hospital stay, but he still wants to look for a PCP on his own and not interested in SW getting him set up with one or SW making an appointment with Dr. Gary. The patient receives his medications at [facility]. Social Work was consulted when the patient was in ED and Financial Counseling was notified. Financial Counseling completed a Medicaid application with the patient. SW presented the Release of Information Forms to the patient. The patient signed the forms and SW emailed them back to Financial Counseling. The patient plans to discharge back home with his parents tomorrow, 07/14, after dialysis. No additional needs at this time.
[2020-07-13 11:11] VITALS: BP 159/99; PULSE 80; TEMP 98.6
[2020-07-13 16:00] VITALS: BP 159/90; PULSE 81; TEMP 98
--- NOTE | 2020-07-13 18:53 | NUR ---
Pt resting in the room today, Pt has had no C/O pain today, no other issues noted. VS have remained stable.
[2020-07-13 18:57] VITALS: BP 158/103; PULSE 83; TEMP 98.6
--- NOTE | 2020-07-13 21:45 | NUR ---
Resting in bed. Assessment complete. Lungs clear. Heart sounds normal. Bowels active x4. Pulses present throughout. Bilateral lower extremity edema +1. INT right AC flushed without complications. Denies pain. denies needs. Call light in reach.
[2020-07-13 23:04] VITALS: BP 158/88; PULSE 80; TEMP 98
--- NOTE | 2020-07-14 00:45 | NUR ---
Resting in bed. Denies needs. Call light in reach.
--- NOTE | 2020-07-14 02:00 | NUR ---
Resting in bed asleep. Call light in reach.
[2020-07-14 03:45] VITALS: BP 161/98; PULSE 80; TEMP 98.1
--- NOTE | 2020-07-14 05:03 | NUR ---
Patient required x1 dose of hydralazine for BP control throughout night. Otherwise uneventful night. Resting in bed this AM.
[2020-07-14 05:30] VITALS: BP 154/90; PULSE 81
--- NOTE | 2020-07-14 07:38 | NUR ---
Report given to TATUM Pack
[2020-07-14 07:47] LABS: BASO % 0.4 % (0.0-2.0); EOS # 0.1 (0.0-0.7); EOS % 1.6 % (0-4.0); GRAN # 5.6 (1.4-6.5); GRAN % 68.6 % (42.2-75.2); LYMPH # 1.7 (1.2-3.4); LYMPH % 20.5 % (20.0-51.0); MEAN CELL VOLUME 94 fl (80.0-100.0); MEAN CORPUSCULAR HEMOGLOBIN 30 pg (27.0-31.0); MEAN CORPUSCULAR HGB CONC 31 g/dl (33.0-37.0); MEAN PLATELET VOLUME 10.1 fl (7.4-10.4); MONO # 0.7 (0.1-0.6); MONO % 8.5 % (1.7-9.3); PLATELET COUNT 187 K/mm3 (130-400); RED BLOOD COUNT 3.39 M/mm3 (4.20-5.60)
[2020-07-14 07:54] LABS: HEMATOCRIT 31.8 % (42.0-52.0)
[2020-07-14 08:01] LABS: ALBUMIN 3.7 gm/dL (3.5-5.0); CALCIUM 9.1 mg/dL (8.4-10.2); CREATININE, serum 11.04 (0.66-1.25); PHOSPHOROUS 4.4 mg/dL (2.5-4.5); POTASSIUM 4.2 mmol/L (3.4-5.0)
[2020-07-14 09:23] VITALS: BP 171/92; PULSE 81; TEMP 98.3
[2020-07-14] MEDS ORDERED: TENORMIN100 MG PO (10:17)
[2020-07-14] MEDS ORDERED: LOTENSIN40 MG PO (10:20)
[2020-07-14] MEDS ORDERED: VELPHORO PO (10:21)
--- NOTE | 2020-07-14 10:38 | NUR ---
Pt awake and alert upon entry, no C/O pain at this time, shift assessment complete, moved Pt to dialysis.
[2020-07-14 12:54] VITALS: BP 157/96; PULSE 113; TEMP 98.1
--- NOTE | 2020-07-14 13:36 | NUR ---
Primary nurse was assisted with [phone] patient care by [employer] student Bee Tipton and [employer] instructor Joan Reynolds RN-.
--- NOTE | 2020-07-14 14:30 | NUR ---
Pt discharged to home, discussed discharge packet with Pt, escorted Pt to entrance, Pt left with family via private auto.
== END 2020-07-14 14:30 | disposition home or self-care (01) ==
LOC: COL.ER 06:35 → MEDICAL 08:18
PROVIDERS: Emergency Medicine; Nurse Practitioner; ADMIT Internal Medicine Nephrology
DX: R06.09 Other forms of dyspnea (principal); I16.0 Hypertensive urgency; I13.2 Hypertensive heart and chronic kidney disease with heart failure and with stage 5 chronic kidney disease, or end stage renal disease; N18.6 End stage renal disease; D63.1 Anemia in chronic kidney disease; E21.3 Hyperparathyroidism, unspecified; I50.9 Heart failure, unspecified; Z86.19 Personal history of other infectious and parasitic diseases; Z91.018 Allergy to other foods
CPT/HCPCS: G0008; J1644; J2405; J7030; Q5105

== ENCOUNTER 2020-08-08 11:14 | Emergency (ER) | payer MEDICARE, BC, MEDICAID ==
[~2020-08-08] VITALS: Ht 182.9 cm; Wt 163.0 kg
[~2020-08-08 11:14] MED LIST changes: +LOTENSIN40 MG PO; +SENSIPAR30 MG PO; +TENORMIN100 MG PO; +TUMS500 MG PO; +VELPHORO PO
[2020-08-08 11:20] VITALS: TEMP 98.9
[2020-08-08] MEDS ORDERED: PRINIVIL40 MG PO (11:38)
[2020-08-08] MEDS ORDERED: TUMS ULTRA ST1000 MG PO (11:40)
[2020-08-08 11:53] LABS: BASO % 0.5 % (0.0-2.0); EOS # 0.4 (0.0-0.7); EOS % 4.7 % (0-4.0); GRAN # 5.4 (1.4-6.5); GRAN % 63.2 % (42.2-75.2); HEMOGLOBIN 10.3 g/dl (13.5-18.0); LYMPH # 2.1 (1.2-3.4); LYMPH % 24.7 % (20.0-51.0); MEAN CELL VOLUME 92 fl (80.0-100.0); MEAN CORPUSCULAR HEMOGLOBIN 29 pg (27.0-31.0); MEAN CORPUSCULAR HGB CONC 32 g/dl (33.0-37.0); MEAN PLATELET VOLUME 9.3 fl (7.4-10.4); MONO # 0.5 (0.1-0.6); MONO % 6.3 % (1.7-9.3); PLATELET COUNT 230 K/mm3 (130-400); REDCELL DISTRIBUTION WIDTH-CV 15.7 % (11.5-14.5)
[2020-08-08 11:54] LABS: HEMATOCRIT 32.1 % (42.0-52.0)
[2020-08-08 12:13] LABS: ALBUMIN 4.3 gm/dL (3.5-5.0); BILIRUBIN,TOTAL 0.5 mg/dL (0.0-1.0); MAGNESIUM 2.3 mg/dL (1.6-2.3); POTASSIUM 5.6 mmol/L (3.4-5.0); TOTAL PROTEIN 6.9 gm/dL (6.4-8.2)
[2020-08-08 12:15] LABS: CALCIUM 5.6 mg/dL (8.4-10.2)
[2020-08-08 12:18] LABS: CREATININE, serum 16.21 (0.66-1.25)
[2020-08-08 13:58] VITALS: BP 143/84; PULSE 68
== END 2020-08-08 14:00 | disposition home or self-care (01) ==
LOC: COL.ER 11:14
PROVIDERS: Family Medicine
DX: E83.51 Hypocalcemia (principal); N18.6 End stage renal disease; E03.9 Hypothyroidism, unspecified
CPT/HCPCS: J0610

== ENCOUNTER 2020-08-10 09:04 | Emergency (ER) | payer MEDICARE, BC, MEDICAID ==
[~2020-08-10] VITALS: Ht 182.9 cm; Wt 160.0 kg
[~2020-08-10 09:04] MED LIST changes: +PRINIVIL40 MG PO; +TUMS ULTRA ST1000 MG PO
[2020-08-10 09:16] VITALS: TEMP 98.6
[2020-08-10] MEDS ORDERED: ROCALTROL0.5 MCG PO (09:57)
[2020-08-10 10:01] LABS: BASO % 0.5 % (0.0-2.0); EOS # 0.4 (0.0-0.7); EOS % 4.8 % (0-4.0); GRAN # 5.3 (1.4-6.5); GRAN % 64.9 % (42.2-75.2); LYMPH # 1.7 (1.2-3.4); LYMPH % 20.7 % (20.0-51.0); MEAN CELL VOLUME 92 fl (80.0-100.0); MEAN CORPUSCULAR HEMOGLOBIN 29 pg (27.0-31.0); MEAN CORPUSCULAR HGB CONC 31 g/dl (33.0-37.0); MEAN PLATELET VOLUME 8.8 fl (7.4-10.4); MONO # 0.7 (0.1-0.6); MONO % 8.6 % (1.7-9.3); PLATELET COUNT 201 K/mm3 (130-400); RED BLOOD COUNT 3.44 M/mm3 (4.20-5.60); REDCELL DISTRIBUTION WIDTH-CV 15.7 % (11.5-14.5)
[2020-08-10 10:02] LABS: HEMATOCRIT 31.8 % (42.0-52.0)
[2020-08-10 10:16] LABS: BILIRUBIN,TOTAL 0.6 mg/dL (0.0-1.0); CALCIUM 6.2 mg/dL (8.4-10.2); CREATININE, serum 7.72 (0.66-1.25); MAGNESIUM 2.1 mg/dL (1.6-2.3); POTASSIUM 4.4 mmol/L (3.4-5.0); TOTAL PROTEIN 6.7 gm/dL (6.4-8.2)
[2020-08-10 12:02] VITALS: BP 145/90; PULSE 72
== END 2020-08-10 12:02 | disposition home or self-care (01) ==
LOC: COL.ER 09:04
PROVIDERS: Physician Assistant
DX: E83.51 Hypocalcemia (principal); I13.11 Hypertensive heart and chronic kidney disease without heart failure, with stage 5 chronic kidney disease, or end stage renal disease; N18.6 End stage renal disease; Z99.2 Dependence on renal dialysis
CPT/HCPCS: J0610

== ENCOUNTER → 2020-08-12 | Emergency (ER) | payer MEDICARE, BC, MEDICAID ==
[~2020-08-12] VITALS: Ht 182.9 cm; Wt 160.0 kg
[2020-08-12 15:21] VITALS: TEMP 97.4
[2020-08-12 15:49] LABS: BASO % 0.4 % (0.0-2.0); EOS # 0.4 (0.0-0.7); EOS % 4.3 % (0-4.0); GRAN % 60.7 % (42.2-75.2); HEMOGLOBIN 10.1 g/dl (13.5-18.0); LYMPH # 2.1 (1.2-3.4); LYMPH % 25.1 % (20.0-51.0); MEAN CELL VOLUME 92 fl (80.0-100.0); MEAN CORPUSCULAR HEMOGLOBIN 30 pg (27.0-31.0); MEAN CORPUSCULAR HGB CONC 32 g/dl (33.0-37.0); MEAN PLATELET VOLUME 8.9 fl (7.4-10.4); MONO # 0.7 (0.1-0.6); MONO % 9.1 % (1.7-9.3); PLATELET COUNT 192 K/mm3 (130-400); RED BLOOD COUNT 3.41 M/mm3 (4.20-5.60); REDCELL DISTRIBUTION WIDTH-CV 15.2 % (11.5-14.5)
[2020-08-12 15:50] LABS: HEMATOCRIT 31.3 % (42.0-52.0)
[2020-08-12 16:05] LABS: ALBUMIN 3.8 gm/dL (3.5-5.0); BILIRUBIN,TOTAL 0.6 mg/dL (0.0-1.0); CREATININE, serum 7.5 (0.66-1.25); MAGNESIUM 2.1 mg/dL (1.6-2.3); POTASSIUM 4.3 mmol/L (3.4-5.0); TOTAL PROTEIN 6.1 gm/dL (6.4-8.2)
[2020-08-12 16:18] LABS: CALCIUM 5.9 mg/dL (8.4-10.2)
[2020-08-12 17:56] VITALS: BP 173/81; PULSE 87
== END ==
LOC: COL.ER 15:10
PROVIDERS: Physician Assistant
DX: E83.51 Hypocalcemia (principal); I12.0 Hypertensive chronic kidney disease with stage 5 chronic kidney disease or end stage renal disease; N18.6 End stage renal disease; Z99.2 Dependence on renal dialysis
CPT/HCPCS: J0610

== ENCOUNTER 2020-10-27 11:31 | Observation (INO) | payer MEDICARE, BC, MEDICAID ==
[~2020-10-27] VITALS: Ht 182.9 cm; Wt 166.5 kg
[2020-10-27 12:16] LABS: BASO % 0.5 % (0.0-2.0); EOS # 0.3 (0.0-0.7); EOS % 4.1 % (0-4.0); GRAN # 5.2 (1.4-6.5); GRAN % 65.9 % (42.2-75.2); HEMOGLOBIN 10.4 g/dl (13.5-18.0); LYMPH # 1.8 (1.2-3.4); LYMPH % 22.6 % (20.0-51.0); MEAN CELL VOLUME 95 fl (80.0-100.0); MEAN CORPUSCULAR HEMOGLOBIN 28 pg (27.0-31.0); MEAN CORPUSCULAR HGB CONC 30 g/dl (33.0-37.0); MEAN PLATELET VOLUME 9.5 fl (7.4-10.4); MONO # 0.5 (0.1-0.6); MONO % 6.5 % (1.7-9.3); PLATELET COUNT 188 K/mm3 (130-400); RED BLOOD COUNT 3.66 M/mm3 (4.20-5.60); REDCELL DISTRIBUTION WIDTH-CV 16.3 % (11.5-14.5)
[2020-10-27 12:19] LABS: HEMATOCRIT 34.6 % (42.0-52.0)
[2020-10-27 12:25] LABS: ALBUMIN 4.3 gm/dL (3.5-5.0); BILIRUBIN,TOTAL 0.7 mg/dL (0.0-1.0); CALCIUM 7.9 mg/dL (8.4-10.2); CREATININE, serum 10.3 (0.66-1.25); POTASSIUM 4.4 mmol/L (3.4-5.0); TOTAL PROTEIN 7.2 gm/dL (6.4-8.2)
[2020-10-27 12:36] LABS: TROPONIN-I 0.024 ng/mL (0.000-0.035)
--- NOTE | 2020-10-27 15:30 | NUR ---
Patient brought to floor via cart. He was sent straight to dialysis. No other changes at this time.
[2020-10-27 18:30] VITALS: BP 162/110; PULSE 92; TEMP 98
--- NOTE | 2020-10-27 18:30 | NUR ---
Patient tolerated HD tx, removed 2.7 L of fluid. Patient's next tx scheduled again tomorrow Friday10/28/20 @ 0830 for extra fluid.
--- NOTE | 2020-10-27 19:10 | NUR ---
Patient is back in room from dialysis. Report given to Meghan Gonzalez RN. Apresoline given as ordered for BP 162/110. Tylenol also given for a headache. No other changes at this time. Call light within reach. Discussed that patient needs to stick to his fluid restriction.
[2020-10-27 19:47] VITALS: BP 141/85; PULSE 92; TEMP 97.5
--- NOTE | 2020-10-27 22:08 | NUR ---
PATIENT RESTING IN BED. 5 PAGE COMPLETE. PATIENT REQUESTING MORE WATER BUT IS ON A FLUID RESTRICTION AND HAS REACHED HIS LIMIT FOR THE DAY. EDUCATED ON FLUID RESTRICTION. NO COMPLAINTS OF PAIN OR NAUSEA AT THIS TIME.
[2020-10-28 00:18] VITALS: BP 142/88; PULSE 94; TEMP 97.9
[2020-10-28 04:18] VITALS: BP 136/87; PULSE 90; TEMP 97.6
--- NOTE | 2020-10-28 04:21 | NUR ---
PATIENT CALLED STATING HE WAS NAUSEOUS. GAVE ZOFRAN PER ORDERS. PATIENT THREW UP A SMALL AMOUNT.
--- NOTE | 2020-10-28 04:22 | NUR ---
PATIENT STATED HE WAS FEELING SHORT OF BREATH. TOOK VITALS AND HE WAS 99% ON 1 L NC. BLOOD PRESSURE WAS STABLE.
[2020-10-28 08:16] VITALS: BP 138/102; PULSE 96; TEMP 97.6
--- NOTE | 2020-10-28 08:30 | NUR ---
Patient is getting dialysis this morning. He has been having some nausea since he got the contrast earlier. Denies pain or headaches this morning. He Discussed him sticking to his fluid restriction. He keeps asking for more water. Explained he needs to get mouth moisturizer or spray for home so that his mouth does not feel so dry. He had some zofran earlier. No other changes at this time. Call light within reach.
[2020-10-28 09:23] LABS: CALCIUM 7.9 mg/dL (8.4-10.2); CREATININE, serum 9.5 (0.66-1.25); POTASSIUM 4.7 mmol/L (3.4-5.0)
[2020-10-28 09:24] LABS: BASO % 0.4 % (0.0-2.0); EOS # 0.3 (0.0-0.7); EOS % 3.4 % (0-4.0); GRAN # 6.1 (1.4-6.5); GRAN % 74.7 % (42.2-75.2); LYMPH # 1.3 (1.2-3.4); LYMPH % 15.9 % (20.0-51.0); MEAN CELL VOLUME 93 fl (80.0-100.0); MEAN CORPUSCULAR HGB CONC 31 g/dl (33.0-37.0); MEAN PLATELET VOLUME 9.7 fl (7.4-10.4); MONO # 0.4 (0.1-0.6); MONO % 5.4 % (1.7-9.3); PLATELET COUNT 178 K/mm3 (130-400); RED BLOOD COUNT 3.27 M/mm3 (4.20-5.60); REDCELL DISTRIBUTION WIDTH-CV 16.3 % (11.5-14.5)
[2020-10-28 09:27] LABS: HEMATOCRIT 30.4 % (42.0-52.0); HEMOGLOBIN 9.5 g/dl (13.5-18.0); MEAN CORPUSCULAR HEMOGLOBIN 29 pg (27.0-31.0)
--- NOTE | 2020-10-28 11:29 | NUR ---
Plan to return home with Mother Nydia Mcdonald and Father Vipin in [place]. Patient reports that he has dialysis 3 times a week -- at [facility]. Patient reports that he does not have a PCP but see Dr. Aquino. Patient declined setting up PCP. Patient reports that use of [facility] on [address] for RX. Patient reports that use of a cane but no other DMe use for mobility. Patient reports the use of 02 1-2 liters when on shaina-. Patient indicated that his parents will provide transportation. No dpoa reported, no additonal supports in home Educated on additional supports and services. Will continue to follow.
--- NOTE | 2020-10-28 11:43 | NUR ---
Patient tolerated extra 2 hour tx today for fluid. Removed 3 L of fluid. Patient @ dry weight. Planned next HD tx @ the clinic on Friday10/30/20.
[2020-10-28 12:47] VITALS: BP 171/105; PULSE 93; TEMP 97.5
--- NOTE | 2020-10-28 15:25 | NUR ---
Patient is discharging home. Discharge instructions discussed with patient. Explained he only 700ml of fluid left for today. Encouraged him to stick to his diet and fluid restriction. Patient verbalized understanding. Denies pain. He knows he needs to have his dialysis and stick to it. Copies of discharge instructions sent with patient. All belongings packed up and sent with patient. Patient walked out via wheel chair.
== END 2020-10-28 15:25 | disposition home or self-care (01) ==
LOC: COL.ER 11:31 → SURG 14:49
PROVIDERS: Nurse Practitioner Primary Care; ADMIT Internal Medicine Nephrology
DX: R06.09 Other forms of dyspnea (principal); I16.0 Hypertensive urgency; D63.1 Anemia in chronic kidney disease; I13.2 Hypertensive heart and chronic kidney disease with heart failure and with stage 5 chronic kidney disease, or end stage renal disease; N18.6 End stage renal disease; Z99.2 Dependence on renal dialysis; I50.9 Heart failure, unspecified; U07.1 COVID-19; E66.9 Obesity, unspecified; S32.409A Unspecified fracture of unspecified acetabulum, initial encounter for closed fracture; Z87.891 Personal history of nicotine dependence; Z91.018 Allergy to other foods; I08.1 Rheumatic disorders of both mitral and tricuspid valves
CPT/HCPCS: G0378; J1644; J1940; J2405; J7030; Q5105; Q9967

== ENCOUNTER 2021-06-25 06:41 | Observation (INO) | payer MEDICARE, BC ==
[~2021-06-25] VITALS: Ht 180.3 cm; Wt 158.2 kg
[2021-06-25 07:44] LABS: INR 1.1 (0.8-3.0); PROTHROMBIN TIME 11.7 SECONDS (9.7-12.8)
[2021-06-25 07:51] LABS: ALANINE AMINOTRANSFERASE 27 U/L (4-49); ALBUMIN 4.7 gm/dL (3.5-5.0); ALKALINE PHOSPHATASE 189 U/L (50-136); ANION GAP 19 mmol/L (7-16); AST,SGOT 27 U/L (15-37); BILIRUBIN,TOTAL 0.7 mg/dL (0.0-1.0); BLOOD UREA NITROGEN 51 mg/dL (9-20); CALCIUM 6.9 mg/dL (8.4-10.2); CARBON DIOXIDE 23 mmol/L (22-30); CHLORIDE 100 mmol/L (98-107); CREATINE KINASE 163 U/L (55-170); GLUCOSE 98 mg/dL (74-106); MAGNESIUM 2.1 mg/dL (1.6-2.3); POTASSIUM 4.2 mmol/L (3.4-5.0); SODIUM 141 mmol/L (137-145); TOTAL PROTEIN 8.3 gm/dL (6.4-8.2)
[2021-06-25 08:00] LABS: CREATININE, serum 12.95 (0.66-1.25)
[2021-06-25 08:03] LABS: TROPONIN-I < 0.012 ng/mL (0.000-0.035)
[2021-06-25 08:28] LABS: BASO # 0.1 (0.0-0.2); BASO % 0.5 % (0.0-2.0); EOS # 0.1 (0.0-0.7); EOS % 1.1 % (0-4.0); GRAN # 8.6 (1.4-6.5); GRAN % 70.8 % (42.2-75.2); HEMATOCRIT 42.4 % (42.0-52.0); HEMOGLOBIN 13.6 g/dl (13.5-18.0); LYMPH # 2.5 (1.2-3.4); LYMPH % 20.4 % (20.0-51.0); MEAN CELL VOLUME 96 fl (80.0-100.0); MEAN CORPUSCULAR HEMOGLOBIN 31 pg (27.0-31.0); MEAN CORPUSCULAR HGB CONC 32 g/dl (33.0-37.0); MONO # 0.8 (0.1-0.6); MONO % 6.9 % (1.7-9.3); PLATELET COUNT 238 K/mm3 (130-400); RED BLOOD COUNT 4.44 M/mm3 (4.20-5.60); REDCELL DISTRIBUTION WIDTH-CV 15.2 % (11.5-14.5)
[2021-06-25] MEDS ORDERED: LOTENSIN 1010 MG/TAB PO (10:24)
[2021-06-25 10:38] VITALS: BP 107/48; PULSE 74; TEMP 97.6
--- NOTE | 2021-06-25 11:00 | NUR ---
Pt arrived to medical unit room 319 from ER around 1000. aware of pt's arrival and RN Sandi at bedside at this time. Admission assessment and med rec complete. Pt denies needs at this time. Oriented to room and call light in reach. Continuing to monitor.
[2021-06-25 13:03] VITALS: BP 91/53; PULSE 76; TEMP 98
[2021-06-25 17:22] VITALS: BP 83/43; PULSE 79; TEMP 97.8
[2021-06-25 19:31] VITALS: BP 76/46; PULSE 86; TEMP 97.9
--- NOTE | 2021-06-25 23:09 | NUR ---
Patient' BP 71/[address] Aquino notified and no additional orders obtained. Fluids will continue to run at 125 mls/hr. Patient is cognitively intact with no symtoms of hypotension; will continue to monitor until pt symptomatic, per Miles orders.
[2021-06-26] VITALS: BP 71/33; PULSE 76; TEMP 98
[2021-06-26 04:00] VITALS: BP 77/43
[2021-06-26 07:57] VITALS: BP 96/53; PULSE 72
--- NOTE | 2021-06-26 08:50 | NUR ---
Assessment completed, alert/oriented, vital signs stable / BP still slightly hypotensive but near his baseline per dialysis nurse, heart RRR/ distal pulses are palpable, left arm fistula + bruit/thrill and strong pulse, lugns CTA/ no resp.difficulty, awaiting labs for this morning, he denies any stools sence being in the hospital/ still in C/diff p/c for now, he is able to ambulate and reports feeling a little bit better today, he walked down to diaylsis and I escorted him to the room
[2021-06-26 09:55] LABS: ALBUMIN 4.1 gm/dL (3.5-5.0); CALCIUM 6.1 mg/dL (8.4-10.2); PHOSPHOROUS 3.4 mg/dL (2.5-4.5); POTASSIUM 4.9 mmol/L (3.4-5.0)
[2021-06-26 10:01] LABS: CREATININE, serum 15.49 (0.66-1.25)
[2021-06-26 10:18] LABS: BASO % 0.3 % (0.0-2.0); EOS # 0.1 (0.0-0.7); EOS % 1.3 % (0-4.0); GRAN # 6.4 (1.4-6.5); GRAN % 68.7 % (42.2-75.2); LYMPH # 2.2 (1.2-3.4); LYMPH % 23.4 % (20.0-51.0); MEAN CELL VOLUME 94 fl (80.0-100.0); MEAN CORPUSCULAR HGB CONC 32 g/dl (33.0-37.0); MEAN PLATELET VOLUME 9.1 fl (7.4-10.4); MONO # 0.6 (0.1-0.6); PLATELET COUNT 205 K/mm3 (130-400); RED BLOOD COUNT 3.71 M/mm3 (4.20-5.60)
[2021-06-26 10:22] LABS: HEMOGLOBIN 11.3 g/dl (13.5-18.0); MEAN CORPUSCULAR HEMOGLOBIN 30 pg (27.0-31.0)
[2021-06-26 11:58] VITALS: BP 137/60; PULSE 57; TEMP 98.2
--- NOTE | 2021-06-26 11:58 | NUR ---
PATIENT TOLERATED HD TX WITH 600 ML FLUID REMOVAL. NEXT HD TX PLANNED @ [facility] TOMORROW, Friday06/27/21 @ 0600.
--- NOTE | 2021-06-26 13:38 | NUR ---
workers' compensation hearings officer met with patient to discuss discharge plan. Patient lives with his parents, Ngozi (Phillip) [phone] and Vipin (Fa) [phone] in [place]. Patient reports that he is fully independent on activities of daily living and does not utilize any medical equipment. Patient does not have a PCP currently. workers' compensation hearings officer educated the patient on the differnt options there are and the importance of having a PCP, The patient requested a K physician. workers' compensation hearings officer contacted [facility] and Dr. Navarro accepts and loading unit operator seating notified. They will call and set up an apointment date and time due to needing clinical documentation prior to making the appointment. workers' compensation hearings officer notifed the patient of this. He does currently see Dr. Fregoso for HD M,W,F. Patient does not currently have a DPOA-HC and doesn't wish to establish one at this time. Patient is planning on returning home with no concerns. *Discharge plan: Home*
--- NOTE | 2021-06-26 14:11 | NUR ---
Clinical documentation faxed to [facility] and nursing notified.
--- NOTE | 2021-06-26 14:25 | NUR ---
Discharge instructions reviewed with the patient and his mother, instructed to resume normal dialysis schedule, explained that we have set him up with a primary care provider and they will call to schedule appointemnt, script for abx called into pharmacy for him, instructed to stop Lotensin due to low B/P, IV removed, leaving with his mom, I escorted them to the door
== END 2021-06-26 14:52 | disposition home or self-care (01) ==
LOC: COL.ER 06:41 → MEDICAL 09:02
PROVIDERS: Emergency Medicine; ADMIT Internal Medicine Nephrology
DX: I13.2 Hypertensive heart and chronic kidney disease with heart failure and with stage 5 chronic kidney disease, or end stage renal disease (principal); N18.6 End stage renal disease; I50.9 Heart failure, unspecified; D63.1 Anemia in chronic kidney disease; I95.9 Hypotension, unspecified; R11.2 Nausea with vomiting, unspecified; R53.1 Weakness; E83.81 Hungry bone syndrome; D72.829 Elevated white blood cell count, unspecified; Z90.89 Acquired absence of other organs; Z99.2 Dependence on renal dialysis; Z79.899 Other long term (current) drug therapy; Z20.822 Contact with and (suspected) exposure to COVID-19; Z86.16 Personal history of COVID-19
CPT/HCPCS: G0378; J1644; J2405; J7030

== ENCOUNTER 2021-09-24 12:32 | Emergency (ER) | payer MEDICARE, BC ==
[~2021-09-24] VITALS: Ht 180.3 cm; Wt 161.6 kg
[~2021-09-24 12:32] MED LIST changes: +LOTENSIN 1010 MG/TAB PO
[2021-09-24 12:39] VITALS: TEMP 97.8
[2021-09-24 14:17] LABS: BASO # 0.1 K/mm3 (0.0-0.2); BASO % 0.4 % (0.0-2.0); EOS # 0.2 K/mm3 (0.0-0.7); EOS % 1.2 % (0.0-4.0); GRAN % 64.8 % (42.2-75.2); HEMOGLOBIN 16.6 g/dl (13.5-18.0); LYMPH % 24.8 % (20.0-51.0); MEAN CELL VOLUME 97 fl (80.0-100.0); MEAN CORPUSCULAR HEMOGLOBIN 31 pg (27-31); MEAN CORPUSCULAR HGB CONC 32 g/dl (33.0-37.0); MEAN PLATELET VOLUME 8.8 fl (7.4-10.4); MONO % 8.2 % (1.7-9.3); PLATELET COUNT 268 K/mm3 (130-400); RED BLOOD COUNT 5.36 M/mm3 (4.20-5.60); REDCELL DISTRIBUTION WIDTH-CV 18.4 % (11.5-14.5)
[2021-09-24 14:22] LABS: HEMATOCRIT 52.1 % (42.0-52.0)
[2021-09-24] MEDS ORDERED: DULCOLAX STOOL100 MG PO (14:32)
[2021-09-24 14:34] LABS: ALBUMIN 4.1 gm/dL (3.5-5.0); BILIRUBIN,TOTAL 0.8 mg/dL (0.2-1.2); CALCIUM 8.1 mg/dL (8.4-10.2); CREATININE, serum 11.28 mg/dL (0.72-1.25); POTASSIUM 4.4 mmol/L (3.5-4.5); TOTAL PROTEIN 8.2 gm/dL (6.2-8.1)
[2021-09-24 14:39] VITALS: BP 100/68; PULSE 96
== END 2021-09-24 14:38 | disposition home or self-care (01) ==
LOC: COL.ER 12:32
PROVIDERS: Nurse Practitioner Primary Care
DX: K59.00 Constipation, unspecified (principal); Z90.49 Acquired absence of other specified parts of digestive tract

== ENCOUNTER → 2021-12-28 | Outpatient (CLI) | payer MEDICARE, BC ==
[~2021-12-28] MED LIST changes: +DULCOLAX STOOL100 MG PO
== END ==
LOC: COL.RAD 11:53
DX: N28.1 Cyst of kidney, acquired (principal)

== ENCOUNTER 2022-01-21 11:58 | Emergency (ER) | payer MEDICARE, BC ==
[~2022-01-21] VITALS: Ht 180.3 cm; Wt 160.0 kg
[2022-01-21 12:07] VITALS: TEMP 97.7
[2022-01-21 13:24] VITALS: BP 110/68; PULSE 68
[2022-01-21] MEDS ORDERED: ANUSOL-HC2.5% RC (13:37)
== END 2022-01-21 13:25 | disposition home or self-care (01) ==
LOC: COL.ER 11:58
DX: K59.00 Constipation, unspecified (principal)